=== PATIENT | female | born 1955 | race American Indian/Alaskan Native ===

== ENCOUNTER 2017-12-16 17:54 | Emergency (ER) | payer BC, OTHER ==
[~2017-12-16] VITALS: Ht 157.5 cm; Wt 59.0 kg
[~2017-12-16 17:54] MED LIST: ASPIRIN EC81 MG PO; CALCIUM + D3 E1 EACH PO; FOLIC ACID1 MG PO; FOSAMAX70 MG PO; IBUPROFEN400 MG PO; LEVAQUIN750 MG PO; PILOCARPINE HCL5 MG PO; PLAQUENIL200 MG PO; PREDNISONE5 MG PO; REMICADE100 MG/10 IV
== END 2017-12-16 18:20 | disposition home or self-care (01) ==
LOC: ED 17:54
DX: S00.06XA Insect bite (nonvenomous) of scalp, initial encounter (principal); W57.XXXA Bitten or stung by nonvenomous insect and other nonvenomous arthropods, initial encounter

== ENCOUNTER 2018-11-23 00:31 | Emergency (ER) | payer BC, OTHER ==
[~2018-11-23] VITALS: Ht 157.5 cm; Wt 59.0 kg
[2018-11-23] MEDS ORDERED: AUGMENTIN 875-1 EACH PO (00:54)
== END 2018-11-23 01:15 | disposition home or self-care (01) ==
LOC: ED 00:31
DX: S61.255A Open bite of left ring finger without damage to nail, initial encounter (principal); I10 Essential (primary) hypertension; Z90.49 Acquired absence of other specified parts of digestive tract; Z91.030 Bee allergy status; Z79.82 Long term (current) use of aspirin; Z79.52 Long term (current) use of systemic steroids; Z79.899 Other long term (current) drug therapy; W54.0XXA Bitten by dog, initial encounter
CPT/HCPCS: 90471; 90715; 99283-25

== ENCOUNTER 2024-04-12 13:39 | Emergency (ER) | payer MEDICARE, OTHER ==
[~2024-04-12] VITALS: Ht 157.5 cm; Wt 68.0 kg
[~2024-04-12 13:39] MED LIST changes: +AUGMENTIN 875-1 EACH PO; +DOXYCYCLINE HYC50 MG PO
[2024-04-12] MEDS ORDERED: propofoL 200 MG/20 ML VIAL IV ONE ×2 (14:45→15:00)
[2024-04-12 15:50] VITALS: BP 147/72
== END 2024-04-12 15:55 | disposition home or self-care (01) ==
LOC: ED 13:39
DX: S43.015A Anterior dislocation of left humerus, initial encounter (principal); W07.XXXA Fall from chair, initial encounter; I10 Essential (primary) hypertension; Z91.030 Bee allergy status; Z79.899 Other long term (current) drug therapy; Z79.82 Long term (current) use of aspirin
CPT/HCPCS: 23650; 73020; 73030; 99152; 99283-25; J2704